=== PATIENT | male | born 1965 | race African-American/Black ===

== ENCOUNTER 2019-03-14 10:00 | Observation (INO) ==
--- NOTE | 2019-03-14 11:17 | PROVIDER DOCUMENTATION ---
HPI-Abdominal Pain/GI Problem - General Chief Complaint: Nausea/Vomiting Stated Complaint: VOMITING / DIZZY Time Seen by Provider: 03/14/19 11:04 Allergies/Adverse Reactions: Patient Allergies Allergy/AdvReac Type Severity Reaction Status Date / Time No Known Allergies Allergy Verified 01/03/18 18:43 Home Medications: Home Medication List Medication Instructions Recorded Confirmed Last Taken Type Fenofibrate [Tricor] 48 mg PO DAILY 03/14/19 03/14/19 03/14/19 History 48 mg - History of Present Illness-ABD Nature of Presenting Problems: [id number] presents to the ER with c/o vomiting blood and black stools for a week. He states that he has been vomiting intermittently for over 2 months. He states he has had unintentional weightloss of >15lbs during this time. He states that he drinks approx 5 beers per day, 1 in the morning and 4 in the evening. He denies any drug use. He reports dizzy spells and lightheadedness on occasion. Abdominal Pain Onset Location: reports: epigastric Quality of Pain: reports: sharp (with palpation) Onset/Duration: reports: 1 week ago Exposure to sick contacts?: No Associated Symptoms: reports: dizziness, loss of appetite, malaise, vomiting, weakness, other (black stools) Dark Stools Present?: reports: black Rectal Bleeding: reports: none Rectal Pain: reports: none Emesis Description: reports: red blood, coffee grounds Bruising or Bleeding Gums?: No Similar Symptoms Previously?: No Recently seen or treated by another doctor?: No Review of Systems - Adult - REVIEW OF SYSTEMS - ADULT Constitutional: reports: see HPI, fatique. denies: chills, fever Eyes: reports: no symptoms reported Ears, Nose, Mouth & Throat: reports: no symptoms reported Cardiovascular: reports: no symptoms reported. denies: chest pain, palpitations , syncope Respiratory: reports: no symptoms reported. denies: cough, shortness of breath, wheezing Gastrointestinal: reports: see HPI, abdominal pain, hematemesis, nausea, poor appetite, vomiting Genitourinary: reports: no symptoms reported. denies: discharge, frequency, hematuria, incontinence, urinary retention, urgency Musculoskeletal: reports: no symptoms reported Integumentary: reports: no symptoms reported Neurological: reports: see HPI, dizziness/vertigo. denies: ataxia, headache/migraines, loss of balance, syncope Psychiatric: reports: no symptoms reported Endocrine: reports: no symptoms reported Hematologic/Lymphatic: reports: no symptoms reported Allergic/Immunologic: reports: no symptoms reported All Other Systems: Reviewed and Negative Past History - Adult - PAST MEDICAL HISTORY-ADULT Review of Records: reports: Old Records Reviewed, Nursing Assessment Review, Medications Reviewed, Social history reviewed & non-contributory. Major Childhood Illnesses: reports: denies history Cardiovascular: reports: denies history Respiratory: reports: denies history Gastrointestinal: reports: denies history Obstetrical/Gynecological: reports: denies history Genitourinary: reports: denies history Musculoskeletal: reports: denies history Neurological: reports: denies history Endocrine/Immune: reports: denies history Other Conditions: reports: denies history - IMMUNIZATION STATUS Childhood Immunizations: See Nurse Assessment Flu Vaccine: See Nurse Assessment - FAMILY HISTORY Family History: reviewed, not pertinent - SOCIAL HISTORY Smoking: cigarettes, greater than 1 pack/day Substance Use: alcohol Alcohol Use Frequency: every day Number of drinks per typical drinking period:: 5-10 drinks Living Situation: family Physical Exam-General - PHYSICAL EXAM-ADULT Initial Vital Signs Reviewed: Yes - CONSTITUTIONAL General Appearance: alert, moderate distress, thin - EYES Eyes: PERRL/EOMI, pink conjunctivae - HEAD, EARS, NOSE, MOUTH & THROAT HENMT: moist mucous membranes, pharynx normal - NECK Neck: full range of motion, supple - RESPIRATORY Respiratory: no pleuratic chest pain, no respiratory distress, wheezing - CARDIOVASCULAR Cardiovascular: normal peripheral pulses, tachycardia - GASTROINTESTINAL (ABDOMEN) Abdominal Exam: soft, no organomegaly, tenderness (epigastric) - LYMPHATIC Lymphatic: no adenopathy - MUSCULOSKELETAL Extremity: normal gait - SKIN Integumentary: normal turgor, warm/dry - NEUROLOGIC Neurologic: grossly normal - PSYCHIATRIC Psych/Mental Status: oriented x 3 Progress - PLAN OF CARE/RESULTS Progress/Plan/Lab Results: Vital Signs - 8 hr 03/14/19 10:09 Temperature 98.4 F Pulse Rate 105 H Respiratory Rate 18 Blood Pressure 115/78 O2 Sat by Pulse Oximetry 95 Orders Category Date Time Status Orthostatic Vital Signs NOW Care 03/14/19 11:15 Ordered Saline Loc NOW Care 03/14/19 11:[address] ABD/PELVIS W/IV CONT ONLY [CT] Stat Exams 03/14/19 11:13 Ordered ALCOHOL BLOOD Stat Lab 03/14/19 11:15 Uncollected AMYLASE [CHEM] Stat Lab 03/14/19 11:13 Ordered CBC WITH ELECTRONIC DIFF [HEME] Stat Lab 03/14/19 11:13 Uncollected COMPREHENSIVE METABOLIC PANEL [CHEM] Stat Lab 03/14/19 11:13 Uncollected LIPASE [CHEM] Stat Lab 03/14/19 11:13 Uncollected TYPE & SCREEN [BBK] Stat Lab 03/14/19 11:13 Uncollected UA NIMS W/REFLEX CULT PL [URINALYSIS] Stat Lab 03/14/19 11:13 Uncollected URINE DRUG SCREEN PL Stat Lab 03/14/19 11:13 Uncollected patient and verbalize an understanding of POC and agree with treatment rendered here today. Result Diagrams: 03/14/19 11:32 03/14/19 11:32 - CONSULTS/PCP/HOSPITALIST Notification #1 *Consult/PCP/Hospitalist*: Dr Lambert Time Discussed: 13:55 Reason/Comments: GI Bleed Consult Disposition: Admit Departure - Departure Date of Disposition Decision: 03/14/19 Time of Disposition Decision: 13:55 DIAGNOSIS: GI bleed Qualifiers: GI bleed type/associated pathology: unspecified gastrointestinal hemorrhage type Qualified Code(s): K92.2 - Gastrointestinal hemorrhage, unspecified Disposition: ADMITTED INPATIENT 09 Certified Medical Emergency: Emergent Condition: Critical Additional Freetext Instructions: ED Follow Up Instructions: You have been treated by a care provider in the Emergency Department. These instructions are being provided to you so you can have an understanding of how to care for yourself upon discharge. Upon discharge from the Emergency Department, you are responsible for making arrangements for follow-up care by a physician of your choice. Take all prescribed medications as directed. Return to the Emergency Department immediately for any new or worsening symptoms. You may call the Physician Referral phone number at [phone] to obtain a list of Physicians who are taking new patients. Referrals and Follow-Ups: None,PCP [Primary Care Provider] - - Critical Care Note This patient required my direct & personal management of CC.: No Attestation - Physician/ SMITHA Attestation Patient care was provided by Advanced Practice Provider:: Yes Advanced Practice Provider:: Jose Dunbar) Advanced Practice Provider documentation review:: The Mid-level provider docume ntation, treatment plan and medical decision making was reviewed by the physician who agrees with all treatment and medical decision making by the MLP. The physician spent face to face time with patient:: No Advanced Practice Provider documentation review:: Supervising physician onsite and consulted in the evaluation and care of this patient. The physician did not have a face to face encounter with the patient.
[2019-03-14 12:05] LABS: BASO# 0.13 X1000 (0.0-0.2); EOS# 0.24 X1000 (0.0-0.7); EOS% 1.9 % (0.0-10.0); HEMATOCRIT 30.1 % (42.0-52.0); HEMOGLOBIN 9.7 g/dL (14.0-18.0); IMM GRAN# 0.03 X1000 (0.0-0.04); IMM GRAN% 0.2 % (0.0-0.5); LYMPH# 2.55 X1000 (1.2-3.4); LYMPH% 19.8 % (20.5-51.1); MCH 31.2 PG (27-31); MCHC 32.2 g/dL (33-37); MCV 96.8 FL (81-99); MONO# 0.69 X1000 (0.11-0.59); MONO% 5.4 % (1.7-9.3); MPV 8.5 FL (7.4-10.4); NEUT# 9.24 X1000 (1.4-6.5); NEUT% 71.7 % (42.2-75.2); PLT 402 X1000 (130-400); RBC 3.11 XMIL (4.7-6.1); RDW 13.7 % (11.5-14.5); WBC 12.88 X1000 (4.8-10.8)
[2019-03-14 12:13] LABS: ALBUMIN 4.1 g/dL (3.5-5.0); CREATININE 1.3 mg/dL (0.7-1.2); POTASSIUM 4.2 mmol/L (3.5-5.1); TOTAL BILIRUBIN 0.3 mg/dL (0.20-1.00); TOTAL PROTEIN 6.8 g/dL (6.3-8.3)
[2019-03-14 12:26] LABS: BILIRUBIN URINE NEGATIVE (NEGATIVE); BLOOD URINE NEGATIVE (NEGATIVE); CLARITY CLEAR (CLEAR); COLOR YELLOW; GLUCOSE URINE NEGATIVE (NEGATIVE); KETONE URINE TRACE mg/dL (NEGATIVE); LEUKOCYTES URINE NEGATIVE (NEGATIVE); NITRITE URINE NEGATIVE (NEGATIVE); PH URINE 6.5; PROTEIN URINE 1+(30 mg/dL) mg/dL (NEGATIVE); UROBILINOGEN URINE NORMAL
[2019-03-14 12:29] LABS: URINE BACTERIA NEGATIVE /HFP; URINE CAST NONE SEEN /LPF; URINE CRYSTAL NONE SEEN /HPF; URINE EPITHELIAL CELLS <10 /HPF (<10); URINE RBC <10 /HPF (<10); URINE SOURCE CLEAN CATCH; URINE WBC <10 /HPF (<10); URINE YEAST NONE SEEN /HPF
[2019-03-14 12:30] LABS: UR AMPHETAMINES QUAL NONE DETECTED (NONE DETECT); UR BARBITUATES QUAL NONE DETECTED (NONE DETECT); UR BENZODIAZEPIN QUAL NONE DETECTED (NONE DETECT); UR CANNABINOIDS QUAL NONE DETECTED (NONE DETECT); UR COCAINE QUAL NONE DETECTED (NONE DETECT); UR METHADONE QUAL NONE DETECTED (NONE DETECT); UR METHAMPHETAMINE QUAL NONE DETECTED (NONE DETECT); UR OPIATES QUAL NONE DETECTED (NONE DETECT); UR OXYCODONE QUAL NONE DETECTED (NONE DETECT); UR PCP QUAL NONE DETECTED (NONE DETECT); UR PROPOXYPHENE QUAL NONE DETECTED (NONE DETECT); UR TCA QUAL NONE DETECTED (NONE DETECT)
[2019-03-14] MEDS ORDERED: NS 1,000 ML IV ONE (12:35)
--- NOTE | 2019-03-14 12:49 | Diag Imaging Result Doc PS360 ---
EXAM: CT ABD/PELVIS W/IV CONT ONLY HISTORY: abd pain TECHNIQUE: CT abdomen and pelvis with intravenous contrast COMPARISON: None. FINDINGS: No calcified gallstones or adjacent inflammation. No focal hepatic lesion. Normal spleen, pancreas, adrenal glands, and kidneys. No hydronephrosis. Moderate to prominent atherosclerosis. No aortic aneurysm. The stomach is not distended. No bowel obstruction. No abscess. Urinary bladder is moderately distended and normal. The prostate is not enlarged. IMPRESSION: No acute abnormality identified. This exam was performed using automated exposure control, adjustment of mA or kV according to patient size, and/or use of iterative reconstruction technique. Electronically signed by Robb Terrazas 03/14/2019 12:47 PM
[2019-03-14] MEDS ORDERED: NICODERM PATCH TD ONE (13:53)
[2019-03-14] MEDS ORDERED: PROTONIX IV ONE (13:53)
[2019-03-14] MEDS ORDERED: SODIUM CHLORIDE 0.9% INJ ONE (13:53)
--- NOTE | 2019-03-14 15:18 | HISTORY AND PHYSICAL ---
CHIEF COMPLAINT: Feeling somehow dizzy and black stools. HISTORY OF PRESENT ILLNESS: This is a 54-year-old male with past medical history of hypertension, hyperlipidemia, who presents to the emergency department complaining of feeling tired and also having black stools on and off for the last couple weeks. He reports drinking alcohol daily since he was 14. He does not have any primary care doctor. Here in the ER, he was found to be tachycardic with orthostatic, dehydrated and mild JOANNA and the hemoglobin is 9.7. The patient is going to be admitted for GI bleeding. PAST MEDICAL HISTORY: 1. Hypertension 2. Hyperlipidemia. PAST SURGICAL HISTORY: None. ALLERGIES: No known drug allergies. SOCIAL HISTORY: The patient reports drinking alcohol since he was 14. His is likely drinking 5 to 6 tallboys per day. He denies any abusing drugs. The patient is single, lives with his mom and the patient is a senior construction project manager. FAMILY HISTORY: Positive for hypertension father and for sister with diabetes. REVIEW OF SYSTEMS: Patient has lost approximately 20 to 25 pounds during the last month unintentionally. Denies any night sweats, any orthopnea. PHYSICAL EXAMINATION: VITAL SIGNS: Temperature 98.4 degrees, heart rate 105, respiratory rate 18, blood pressure 115/70, O2 saturation 95% on room air. GENERAL: This is a 54-year-old male, lying in bed, in no acute distress. HEENT: Head is normocephalic, atraumatic. Mucous membranes dry. Pupils equal, round, reactive to light and accommodation. Anicteric sclerae. Pale conjunctivae. NECK: No JVD noted. No carotid bruits. No lymphadenopathy. No thyromegaly. CARDIOVASCULAR: S1, S2 heard. No murmurs, gallops, or rubs. Regular rate and rhythm. RESPIRATORY: Clear bilaterally to auscultation. No work of breathing or using accessory muscles. ABDOMEN: Soft, a little bit distended but nontender to palpation. Bowel sounds present. No organomegaly. No signs of peritoneal irritation. EXTREMITIES: No clubbing, cyanosis, or edema. Peripheral pulses present in both legs. NEUROLOGICAL: The patient alert and oriented x3. Moves 4 extremities. LABORATORY DATA: White cell count 12.8, hemoglobin 9.7, hematocrit 30.1, platelets 402,000 with creatinine 1.3. UDS and toxicology positive for 280 alcohol level. ASSESSMENT: 1. Gastrointestinal bleeding. 2. Alcohol intoxication. 3. Alcohol abuse. 4. Hypertension. 5. Hyperlipidemia. PLAN: At this point, patient looks dehydrated with JOANNA so we will provide IV fluids. We will provide him Protonix 40 mg IV q.12 hours. We will transfer him to [facility] for evaluation for GI. We will keep monitoring BMP daily for JOANNA. For GI bleeding, we are going to check hemoglobin and hematocrit q.6 hours. The patient is an alcoholic so for prevention of alcohol withdrawal, we will provide Ativan and also because he does not have any signs of alcohol withdrawal, I do not think we will need to provide any Librium yet. We will monitor this patient closely. cc: Zeeshan Vasquez MD
[2019-03-14] MEDS ORDERED: ATIVAN IV PRN (18:13)
[2019-03-14] MEDS ORDERED: ZOFRAN IV PRN (18:13)
[2019-03-14] MEDS ORDERED: NORCO-5 PO PRN (18:32)
[2019-03-14] MEDS: NS 1,000 ML IV SCH (18:56)
[2019-03-14] MEDS: PROTONIX IV SCH (20:52)
[2019-03-15 07:00] LABS: INR 0.97; PROTIME 12.9 Seconds (11.0-16.0)
[2019-03-15 07:08] LABS: BASO# 0.07 X1000 (0.0-0.2); BASO% 0.7 % (0.0-0.8); EOS# 0.17 X1000 (0.0-0.7); EOS% 1.6 % (0.0-10.0); HEMATOCRIT 28.4 % (42.0-52.0); HEMOGLOBIN 9.2 g/dL (14.0-18.0); IMM GRAN# 0.02 X1000 (0.0-0.04); IMM GRAN% 0.2 % (0.0-0.5); LYMPH# 1.49 X1000 (1.2-3.4); LYMPH% 14.4 % (20.5-51.1); MCH 31.4 PG (27-31); MCHC 32.4 g/dL (33-37); MCV 96.9 FL (81-99); MONO# 0.57 X1000 (0.11-0.59); MONO% 5.5 % (1.7-9.3); NEUT# 8.02 X1000 (1.4-6.5); NEUT% 77.6 % (42.2-75.2); PLT 317 X1000 (130-400); RBC 2.93 XMIL (4.7-6.1); RDW 13.7 % (11.5-14.5); WBC 10.34 X1000 (4.8-10.8)
[2019-03-15 07:12] LABS: AGAP 19; ALB/GLOB RATIO 1.5; ALBUMIN 3.8 g/dL (3.5-5.0); ALKALINE PHOSPHATASE 53 U/L (32-122); BUN 7 mg/dL (8-22); CALCIUM 7.9 mg/dL (8.8-10.2); CHLORIDE 96 mmol/L (98-107); COSMO 275; CREATININE 1.1 mg/dL (0.7-1.2); ESTIMATED GFR > 60; GLUCOSE 81 mg/dL (70-104); GOT 26 U/L (10-34); GPT 9 U/L (10-44); SODIUM 139 mmol/L (136-145); TCO2 24 mmol/L (25-35); TOTAL PROTEIN 6.4 g/dL (6.3-8.3)
[2019-03-15] MEDS: PROTONIX IV SCH ×2 (08:53→20:15)
[2019-03-15] MEDS: SODIUM CHLORIDE 0.9% INJ SCH ×2 (08:54→20:15)
[2019-03-15] MEDS: NS 1,000 ML IV SCH ×3 (09:53→18:56)
[2019-03-15] MEDS: TRICOR PO SCH (09:54)
[2019-03-15] MEDS ORDERED: VERSED ONE (12:35)
[2019-03-15] MEDS ORDERED: DIPRIVAN 1% ONE (12:36)
[2019-03-15] MEDS ORDERED: XYLOCAINE-MPF 2% ONE (12:36)
--- NOTE | 2019-03-15 12:49 | ENDOSCOPY OPERATIVE NOTE ---
[facility] ENDOSCOPY OPERATIVE NOTE , PATIENT: Kurtis Olivares ADMISSION DATE: 03/15/2019 MR#: [id number] : 1965 [facility] [id number] EGD PROCEDURE REPORT PROCEDURE DATE: 03/15/2019 SURGEON: José Miguel Dan MD STATUS: inpatient PHYSIOTHERAPY PRACTICE MANAGER: PREOPERATIVE DIAGNOSIS: The patient is a 54 yr old male here for an EGD due to anemia and melena. PROCEDURE PERFORMED: EGD, diagnostic MEDICATIONS: Per Anesthesia TOPICAL ANESTHETIC: none CONSENT: The patient understands the risks and benefits of the procedure and understands that these r isks include, but are not limited to: sedation, allergic reaction, infection, perforation and/or bleeding. Alternative means of evaluation and treatment include, among others: physical exam, x-rays, and/or surgical intervention. The patient elects to proceed with this endoscopic procedure. HISORY AND PHYSICAL: 03/15/2019 function. Hand hygiene and appropriate measures for infection prevention was taken. After the risks, benefits and alternatives of the procedure were thoroughly explained, Informed consent was verified, confirmed and timeout was successfully executed by the treatment team. The patient was anesthetized with topical anesthesia and the [id number] ([id number]) endoscope was introduced through the mouth and advanced to the second portion of the duoden um. Retroflexion was performed in the stomach and revealed no abnormalities. The gastroscope was then slowly withdraw n and removed. ESOPHAGUS: The mucosa of the esophagus appeared normal. STOMACH: Two non-bleeding and clean-based ulcers measuring 10mm in size were found in the gastric ant rum. DUODENUM: A 5 mm sessile polyp was found in the 2nd part of the duodenum. SPECIMENS REMOVED: No ADVERSE EVENTS: There were no complications. POSTOPERATIVE DIAGNOSIS: 1. The mucosa of the esophagus appeared normal 2. Two ulcers measuring 10mm in size were found in the gastric antrum 3. 5 mm sessile polyp was found in the 2nd part of the duodenum RECOMMENDATIONS: Pantoprazole 40mg PO BID for 3 months Clear liquid diet and advance as tolerated Repeat EGD/colonoscopy in 3 months to check for ulcer healing and duodenal polyp polypectomy Avoid NSAIDs/aspirin REPEAT EXAM: José Miguel Dan MD eSigned: José Miguel Dan MD 03/15/2019 12:49 PM cc: PATIENT NAME: Kurtis Olivares MR#: [id number]
--- NOTE | 2019-03-15 13:24 | GASTROENTEROLOGY CONSULTATION ---
DATE: 03/15/2019 REASON FOR CONSULTATION: Melena. HISTORY OF PRESENT ILLNESS: Mr. Kurtis Olivares is a 54-year-old gentleman with past medical history of hypertension, hyperlipidemia, alcoholism, who presents with several months of melena, nausea and vomiting. The patient says that over the last 3 to 4 months, he has been having melenic stools with each bowel movement. He reports yesterday having some nonbloody, nonbilious emesis with foamy mucus yesterday, which prompted his presentation. He does take aspirin 325 twice a day several days a week. He approximates about 3 days a week, he takes aspirin for headaches. Denies any abdominal pain, constipation, diarrhea, or abnormal weight loss. No prior EGD or colonoscopy. His last drink was yesterday morning. No family history of GI malignancy. No history of underlying liver disease. He does not take any other blood thinners. Also positive for loss of appetite, dizziness, malaise, weakness. He did report epigastric pain while he was in the emergency room. He does say he had some unintentional weight loss of about 15 pounds. REVIEW OF SYSTEMS: A 12-point review of systems otherwise negative. PAST MEDICAL HISTORY: Hypertension, hyperlipidemia. PAST SURGICAL HISTORY: None. MEDICATIONS: Aspirin, fenofibrate, and a blood pressure medication that he cannot recall the name of. ALLERGIES: No known drug allergies. FAMILY HISTORY: No family history of GI malignancies or liver disease. SOCIAL HISTORY: He smokes 1 pack per day. He drinks about five 16-ounce beers daily and has been drinking since he was a teenager. PHYSICAL EXAMINATION: Vital Signs: Temperature 98.9 degrees, heart rate of 84, from 102 on admission, blood pressure 149/87, O2 saturation of 100% on room air. Respiratory rate of 16. General: The patient is awake, alert, oriented, no acute distress. HEENT: Sclerae anicteric. Moist mucous membranes. Extraocular motor intact. Neck: Supple. No JVD or lymphadenopathy. Cardiac: Regular rate and rhythm. No murmurs. Lungs: Clear to auscultation bilaterally. No wheezing. Abdomen: Soft, nontender, nondistended. Normoactive bowel sounds. No rebound or guarding. Extremities: No clubbing, cyanosis, or edema. Neurologic: Nonfocal. He is alert and oriented x3. LABORATORY DATA: White count of 10.3, from 12.8 yesterday, hemoglobin 9.2, from 9.7. Last hemoglobin in our system from 01/05/2018 was 15.1. MCV is 96.9, platelets of 317,000. INR 0.97. Sodium of 139, potassium 4.0, chloride 96, bicarb of 24, BUN of 7, creatinine of 1.1, from 1.3 yesterday. Glucose of 81, AST is 26, from 39 yesterday. ALT of 9 from 10 yesterday. Alkaline phosphatase 53, total protein of 6.1, albumin 3.8, lipase 28. UA shows proteinuria. Urine toxicology positive for alcohol 280, repeat this morning is negative . IMAGING: CT of the abdomen and pelvis shows no acute abnormalities. ASSESSMENT AND PLAN: Mr. Kurtis Olivares is a 54-year-old gentleman with history of hypertension, hyperlipidemia, alcoholism and tobacco abuse, who presents with symptomatic anemia, nausea, vomiting, alcohol intoxication, and melena. Appears to be acute on chronic GI bleeding. He does take aspirin daily twice a day. Labs are notable for normocytic anemia, which is new. Unclear if the patient has had acute drop versus longstanding or chronic bleeding given his aspirin use. I do not believe he has a varicocele bleed. His platelets are fine. The INR is normal. No evidence of cirrhosis on imaging. He is on PPI IV b.i.d. He is currently n.p.o. We will plan for diagnostic EGD today. Other notable labs: He does have acute kidney injury that is improved and AST and ALT elevation consistent with alcoholic liver disease. Leukocytosis also resolved. Thank you for this consult. Further recommendations postprocedure. We will follow with you.
--- NOTE | 2019-03-15 15:33 | PROGRESS NOTE ---
DATE: 03/15/2019 INTERVAL HISTORY: Patient admitted with likely upper GI bleed. Currently n.p.o. for endoscopy later today. Reports ongoing melena this morning with his bowel prep. No other acute events. No new complaints. REVIEW OF SYSTEMS: Twelve point review of systems negative except as per interval history. LABS: WBC 10.3, hemoglobin 9.2, hematocrit 28.4, platelets 317,000. INR 0.97, sodium 139, potassium 4, BUN 7, creatinine 1.1. Urinalysis unremarkable. UDS negative. Serum alcohol on admission 280. VITALS: T-max 98.9 degrees, pulse 85, respirations 16, blood pressure 151/75, O2 saturation 100% on room air. PHYSICAL EXAMINATION: General: No acute distress. Vitals as above. HEENT: Normocephalic, atraumatic. Moist mucous membranes. No cervical adenopathy. Slight scleral pallor noted. Cardiovascular: Regular rate and rhythm. No murmurs noted. Pulmonary: Clear to auscultation bilaterally. No wheezing, rales or rhonchi. Abdomen: Soft, nontender, nondistended. Bowel sounds positive. Extremities: Peripheral pulses intact. No clubbing or cyanosis. Neurologic: Cranial nerves grossly intact. No focal deficits. Psychiatric: Normal mood and affect. Awake, alert, oriented x3. Skin: No new rashes or lesions identified. ASSESSMENT AND PLAN: 1. Likely upper gastrointestinal bleed with melena, likely acute blood loss anemia. Patient admitted with reports of melena. Hemoglobin decreased from 15 to 9.7 from last checked about a year ago. Small further decrease this morning to hemoglobin of 9.2. Currently n.p.o. for endoscopy by gastroenterology. Will monitor blood counts and transfuse if needed. 2. Possible Acute kidney injury. Admission creatinine 1.3. Baseline appears to be 1.0 to 1.1. improving. Continue fluids and monitor. 3. Alcohol abuse. Patient counseled on cessation. No signs of withdrawal thus far but alcohol level on admission was significantly elevated so will monitor closely for tachycardia, tremulousness or other sign of withdrawal. 4. Hyperlipidemia. Continue home [employer]. 5. Hypertension. Patient appears to have been off medications prior to admission. Moderately elevated here. If remains consistently elevated will consider starting home meds but will monitor for now given bleeding and orthostasis. [facility]
[2019-03-15] MEDS: PERIDEX MT SCH (20:13)
[2019-03-16] MEDS: PROTONIX IV SCH ×2 (06:23→07:24)
[2019-03-16] MEDS: SODIUM CHLORIDE 0.9% INJ SCH (06:23)
[2019-03-16 07:12] LABS: BASO# 0.02 X1000 (0.0-0.2); BASO% 0.3 % (0.0-0.8); EOS# 0.27 X1000 (0.0-0.7); EOS% 3.6 % (0.0-10.0); HEMOGLOBIN 9.4 g/dL (14.0-18.0); LYMPH# 1.65 X1000 (1.2-3.4); LYMPH% 21.9 % (20.5-51.1); MCHC 32.4 g/dL (33-37); MCV 95.7 FL (81-99); MONO# 0.66 X1000 (0.11-0.59); MONO% 8.8 % (1.7-9.3); MPV 9.4 FL (7.4-10.4); NEUT# 4.92 X1000 (1.4-6.5); NEUT% 65.4 % (42.2-75.2); PLT 246 X1000 (130-400); RBC 3.03 XMIL (4.7-6.1); RDW 13.2 % (11.5-14.5); WBC 7.52 X1000 (4.8-10.8)
[2019-03-16] MEDS: NS 1,000 ML IV SCH ×2 (07:28→15:38)
[2019-03-16] MEDS: PERIDEX MT SCH (09:30)
[2019-03-16] MEDS: TRICOR PO SCH (09:30)
[2019-03-16 10:38] LABS: AGAP 11; BUN 4 mg/dL (8-22); CALCIUM 7.1 mg/dL (8.8-10.2); CHLORIDE 97 mmol/L (98-107); COSMO 265; CREATININE 0.8 mg/dL (0.7-1.2); ESTIMATED GFR > 60; GLUCOSE 95 mg/dL (70-104); POTASSIUM 3.7 mmol/L (3.5-5.1); SODIUM 134 mmol/L (136-145); TCO2 26 mmol/L (25-35)
[2019-03-16 15:19] VITALS: BP 122/73
--- NOTE | 2019-03-16 16:50 | PROGRESS NOTE ---
DATE: 03/16/2019 INTERVAL HISTORY: Patient with no further melena or other sign or symptom of ongoing bleeding. Doing well with clear liquid diet. No new complaints. No acute events overnight. REVIEW OF SYSTEMS: A 12-point review of systems negative, except as per interval history. LABORATORY: WBC 7.5, hemoglobin 9.4, hematocrit 29.0, platelets 246,000. Sodium 134, potassium 3.7, bicarbonate 4, creatinine 0.8, glucose 95. VITALS: Temperature max 98.5 degrees, pulse 89, respirations 20, blood pressure 122/73, O2 saturation 100% on room air. PHYSICAL EXAMINATION: General: No acute distress. Vitals: As above. HEENT: Normocephalic, atraumatic. Moist mucous membranes. No cervical adenopathy. Cardiovascular: Regular rate and rhythm. No murmurs noted. Pulmonary: Clear to auscultation bilaterally. No wheezing, rales, or rhonchi. Abdomen: Soft, nontender, nondistended. Bowel sounds positive. Extremities: Peripheral pulses intact. No clubbing or cyanosis. Neurologic: Cranial nerves grossly intact. No focal deficits. Psychiatric: Normal mood and affect. Awake, alert, oriented x3. Skin: No new rashes or lesions identified. ASSESSMENT AND PLAN: 1. Likely upper gastrointestinal bleed with melena, likely acute blood loss anemia. Patient admitted with reports of melena. Admission hemoglobin 9.7, significantly decreased from 15.1 previously, but fairly stable since he has been here. Hemoglobin today 9.4. Endoscopy performed by GI here, showing 2 ulcers in the gastric antrum without any sign of bleeding ulcer. He has been maintained on PPI. The patient is no longer having melena. Awaiting further GI recommendations, but if his blood counts remain stable, then can likely discharge tomorrow. We will continue PPI. 2. Acute kidney injury. Creatinine 1.3 on admission. With fluids, has improved to 0.8 today, which is likely baseline. Continue to monitor. 3. Alcohol abuse. Patient with no signs or symptoms of withdrawal. We will continue to monitor given admission alcohol level of 280. 4. Hypertension. Hypertensive by history, but not taking any medications, and blood pressure is pretty reasonable, so we will just monitor. 5. Hyperlipidemia. Continue home fenofibrate.
--- NOTE | 2019-03-17 16:02 | DISCHARGE SUMMARY ---
ADMISSION DATE: 03/14/2019 DISCHARGE DATE: 03/16/2019 CONSULTS: Gastroenterology, Dr. Dan. PROCEDURES: Upper endoscopy showing 2 ulcers, approximately 10 mm in the gastric antrum and a 5 mm polyp in the 2nd part of the duodenum. PERTINENT STUDIES: CT abdomen and pelvis with IV contrast showing no acute abnormality. Initial hemoglobin 9.7. Discharge hemoglobin 9.4. Hemoglobin prior to this admission 15.1. Initial creatinine 1.3. Discharge creatinine 0.8. Urinalysis unremarkable. Urine drug screen negative. Initial serum alcohol 280. DISCHARGE DIAGNOSES: 1. Upper gastrointestinal bleed. 2. Acute blood loss anemia. 3. Acute kidney injury. 4. Alcohol abuse. 5. Hypertension. 6. Hyperlipidemia. HOSPITAL COURSE: The patient with history of heavy alcohol use, coming in complaining of fatigue and black stools. He was found to be tachycardic, orthostatic, with anemia and mild acute kidney injury. He was admitted for further evaluation. His initial hemoglobin was significant drop from his last recorded hemoglobin the year before, which was essentially normal. He had only minimal drop after that. He was evaluated by GI with endoscopy, which did show 2 small ulcers, which were not actively bleeding at that time. He was placed on PPI. His diet was advanced. He did well. He was put on fluids for the JOANNA with resolution of that. His kidney function was back to normal at the time of discharge. While he does have a significant alcohol history and was intoxicated on arrival, he never had any signs of alcohol withdrawal. He was discharged in stable condition to continue PPI and follow up with his PCP and GI. DISCHARGE VITAL SIGNS: Temperature 98.5 degrees, pulse 89, respirations 20, blood pressure 120/73, O2 saturation 100% on room air. DISCHARGE DIET: Regular. DISCHARGE MEDICATIONS: 1. Protonix 40 mg p.o. daily. 2. Fenofibrate 48 mg p.o. daily. FOLLOWUP AND PLAN: Patient discharging home on PPI. Patient to follow up with PCP and Gastroenterology. Advised patient to at least cut back or preferably quit alcohol entirely. Advised to avoid NSAIDs at least for the near future. Greater than 30 minutes spent arranging discharge and counseling the patient.
== END 2019-03-16 18:30 | disposition home or self-care (01) ==
LOC: P.ED 10:00 → 4N 10:01 → SUATTDRO 10:01 → INTOOBSV 10:01 → 4N 17:38
PROVIDERS: ATTEND Internal Medicine